=== PATIENT | female | born 1980 | race Hispanic/Latino ===

== ENCOUNTER 2023-05-25 10:33 | Emergency (ER) | payer SELFPAY ==
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
[2023-05-25 12:37] VITALS: TEMP 97.8
[2023-05-25 12:39] VITALS: BP 142/87; O2SAT 94
== END 2023-05-25 12:32 | disposition home or self-care (01) ==
LOC: ER 10:33 → EDBD 10:33 → ER 12:32
DX: S09.90XA Unspecified injury of head, initial encounter (principal); F20.9 Schizophrenia, unspecified
CPT/HCPCS: 70450; 70486; 76377; 99283